=== PATIENT | male | born 1980 | race Caucasian/White ===

== ENCOUNTER 2021-06-12 16:01 | Emergency (ER) | payer OTHER, SELFPAY ==
--- NOTE | ~2021-06-12 | XR_ITS ---
EXAMINATION: XR finger 5th LT min 2V DATE: 06/12/2021 17:39 INDICATION: Laceration at the left fifth distal phalanx. TECHNIQUE: Dorsal palmar, lateral and oblique views of the left fifth digit were obtained COMPARISON: None FINDINGS: Deep laceration at the lateral aspect of the left fifth distal phalanx which appears to involve the f sandra nail and nailbed. Comminuted tuft fracture of the fifth distal phalanx which given the lacerati on is likely open/compound. The tuft fragments are minimally displaced. No other fractures identified . Normal alignment and joint spaces and remainder the visualized left hand. IMPRESSION: 1. Open/compound comminuted tuft fracture of the left fifth distal phalanx with associated deep soft tissue laceration. Reviewed, dictated and finalized at location [facility]
[2021-06-12 16:04] VITALS: BP 178/91; PULSE 77; RESP 14; TEMP 36.6; O2SAT 98
--- NOTE | 2021-06-12 16:24 | ED.WOUNDLAC ---
HPI - Wound/Laceration General Chief Complaint: Wound/Laceration Stated Complaint: Left hand laceration Time Seen by Provider: 06/12/21 16:25 Source: patient Mode of arrival: ambulatory Limitations: no limitations History of Present Illness HPI narrative: Patient is a 41-year-old male who presents the ED with complaints of a laceration to his left fifth finger. Patient reports he was using a reciprocating saw to cut a piece of wood today at work when the saw slipped and cut his left fifth finger. Patient denies any other injuries, bleeding is controlled. He does not think the nail is involved. He does report that he rinsed the wound with water for several minutes after the incident occurred. Patient's tetanus shot is up-to-date. No fever, chills. Related Data Allergies Allergy/AdvReac Type Severity Reaction Status Date / Time iohexol AdvReac Rash Verified 06/12/21 16:03 [From contrast - CT, X-RAY] Review of Systems Review of Systems: CONSTITUTIONAL: Denies fever, chills, or sweats. GASTROINTESTINAL: Denies nausea, vomiting. SKIN: Reports laceration to left fifth finger. Denies rash or itching. MUSCULOSKELETAL: Denies back pain or myalgia. NEUROLOGIC: Denies numbness, or weakness. All systems reviewed & are unremarkable except as noted in HPI and below PMFSH Past Medical History Medical History (Updated 06/12/21 @ 20:30 by Rocio Tse PA-C) No pertinent past medical history Surgical History Surgical History (Updated 06/12/21 @ 19:17 by Rocio Tse PA-C) H/O wisdom tooth extraction Social History Social History (Updated 06/12/21 @ 19:17 by Rocio sTe PA-C) Smoking status: Never smoker Tobacco type: smokeless tobacco Exam Narrative: GENERAL: Well appearing, well-nourished, non-toxic, in no acute distress. HEAD: Normocephalic, atraumatic. NECK: Supple. No adenopathy, no masses. RESPIRATORY: Airway patent, respirations nonlabored. Clear to auscultation bilaterally, no rales, rhonchi, wheezing. CARDIOVASCULAR: Regular rate and rhythm without murmurs, rubs, or gallops. Radial pulses 2+ and equal bilaterally. ABDOMINAL: Soft, nontender, nondistended, no hepatosplenomegaly. Normoactive BS. MUSCULOSKELETAL: Moves all extremities. Strength/ROM/sensation intact. SKIN: Approximately 1 cm jagged deep laceration to medial volar tip of left distal phalanx, small portion of distal medial nail removed. Remainder of nail bed intact. Sharp sensation intact to left fifth finger. NEURO: A&O X3. Speech clear. Cranial nerves II-XII grossly intact. Steady gait. No ataxic movements. PSYCHIATRIC: Appropriate mood and affect. Normal interaction. Course Consultations Consultation #1: Spoke with Dr. Wellington, Plastic surgery on-call at [facility]. Requested pictures to be sent. Patient gave permission for pictures to be sent. Recommends laceration closure with 4-0 Chromic Gut. Patient to follow-up within the next week. Requested CD made of patient's x-ray images to bring to followup. Date: 06/12/21 Time: 18:45 Vital Signs Vital signs: Vital Signs Temperature 97.8 F 06/12/21 16:04 Pulse Rate 77 06/12/21 16:04 Respiratory Rate 14 06/12/21 16:04 Blood Pressure 178/91 H 06/12/21 16:04 Pulse Oximetry 98 06/12/21 16:04 Temperature 97.8 F 06/12/21 16:04 Pulse Rate 77 06/12/21 16:04 Respiratory Rate 14 06/12/21 16:04 Blood Pressure 178/91 H 06/12/21 16:04 Pulse Oximetry 98 06/12/21 16:04 MDM - Wound/Laceration MDM Narrative Medical decision making narrative: Patient presents to the ED after laceration to his medial volar left distal phalanx, using a reciprocating saw. No other injuries. Tetanus status up-to-date. X-ray showing open compound comminuted tuft fracture. Hand surgery called at [facility] to establish follow-up due to open fracture. Recommended closure with 4-0 Chromic Gut. Laceration repaired in the ED with adequate approximation of wound edges. Wound bandaged
[2021-06-12] MEDS: ceFAZolin SODIUM 1 GM VIAL IM (19:26)
[2021-06-12 21:44] VITALS: BP 129/76; PULSE 80; RESP 19; O2SAT 99
--- NOTE | 2021-06-19 07:44 | PC.NURSE ---
LATE ENTRY This note is being entered to document information to the patient's record. The following information was omitted on [06/12/21], by [Maddie Mcnamara RN]. Left pinky finger splinted with aluminum finger splint after dressing applied by NEERAJ Chan.
== END 2021-06-12 21:43 | disposition home or self-care (01) ==
PROVIDERS: Emergency Provider Emergency Medicine; PCP Family Medicine
DX: S62.637B Displaced fracture of distal phalanx of left little finger, initial encounter for open fracture (principal); W29.8XXA Contact with other powered hand tools and household machinery, initial encounter
CPT/HCPCS: 12001; 29130; 73140; 96372; 99284; J0690